=== PATIENT | female | born 1975 | race Caucasian/White ===

== ENCOUNTER → 2019-12-19 | Outpatient (CLI) | payer OTHER ==
[~2019-12-19] MED LIST: MULT-658 PO
[2019-12-19 18:10] LABS: BASOPHILS # (AUTO) 0.06 x10^3/uL (0-0.1); BASOPHILS % (AUTO) 1 % (0-1); EOSINOPHILS # (AUTO) 0.13 x10^3/uL (0-0.4); EOSINOPHILS % (AUTO) 1 % (1-7); LYMPHOCYTES # (AUTO) 2.76 x10^3/uL (1-3.4); LYMPHOCYTES % (AUTO) 29 % (22-44); MD MORPH REVIEW ONLY; MEAN CORPUSCULAR HEMOGLOBIN 21.3 pg (27.0-34.8); MEAN CORPUSCULAR HGB CONC 31.1 g/dL (32.4-35.8); MEAN CORPUSCULAR VOLUME 68.5 fL (80-100); MEAN PLATELET VOLUME 11.4 fL (7.4-10.4); MONOCYTES # (AUTO) 0.62 x10^3/uL (0.2-0.8); MONOCYTES % (AUTO) 7 % (2-9); NEUTROPHILS # (AUTO) 5.87 x10^3/uL (1.8-6.8); NEUTROPHILS % (AUTO) 62 % (42-75); PLATELET COUNT 398 x10^3/uL (130-400); RED BLOOD COUNT 4.87 x10^6/uL (3.82-5.3); RED CELL DISTRIBUTION WIDTH 19.6 % (9.6-15.2)
[2019-12-19 18:12] LABS: <PLATELET ESTIMATE> ADEQUATE; ANISOCYTOSIS 1+; GIANT PLATELETS 1+; LARGE PLATELETS 1+; MICROCYTOSIS 1+; OVALOCYTES 1+; POLYCHROMASIA 1+; TARGET CELLS 1+
== END | disposition home or self-care (01) ==
LOC: STAR 16:09
PROVIDERS: ATTEND Obstetrics & Gynecology Female Pelvic Medicine and Reconstructive Surgery
DX: Z01.818 Encounter for other preprocedural examination (principal); Z11.59 Encounter for screening for other viral diseases; D25.0 Submucous leiomyoma of uterus
CPT/HCPCS: 36415; 85025; 87635

== ENCOUNTER 2019-12-23 06:55 | Day surgery (SDC) | payer OTHER ==
[~2019-12-23] VITALS: Ht 157.5 cm; Wt 65.7 kg
[~2019-12-23 06:55] MED LIST changes: +BUPIVACAINE/PF 0.25% ONE; +GENTAMICIN 80 MG/2 ML ONE; +VANCOMYCIN 500 MG ONE
[2019-12-23] MEDS ORDERED: LACTATED RINGERS 1,000 ML IV ONE (07:27)
[2019-12-23] MEDS ORDERED: LIDOCAINE-MPF 1%, 2ML INFIL STA (07:27)
[2019-12-23] MEDS ORDERED: CHLORHEXIDINE 15 ML UDC MM STA (07:27)
[2019-12-23 07:28] VITALS: BP 116/69
[2019-12-23 07:40] LABS: HCG UR SG 1.005 (1.003-1.030)
[2019-12-23] MEDS ORDERED: FENTANYL PF 100 MCG/2ML ONE ×4 (08:21→12:00)
[2019-12-23] MEDS ORDERED: MIDAZOLAM 1 MG/ML, 2ML ONE (08:21)
[2019-12-23] MEDS ORDERED: HYDROmorphone 1 MG/ML, 1ML INJ IVPush PRN (09:30)
[2019-12-23] MEDS ORDERED: DIAZEPAM 5 MG/ML, 2ML IVPush PRN (09:30)
[2019-12-23] MEDS ORDERED: PROMETHAZINE 25 MG/ML, 1ML IVPush PRN (09:30)
[2019-12-23] MEDS ORDERED: LABETALOL 5MG/ML, 20ML IV PRN (09:30)
[2019-12-23] MEDS ORDERED: ONDANSETRON 2MG/ML, 2ML IVPush PRN (09:30)
[2019-12-23] MEDS ORDERED: ACETAMINOPHEN 325 MG TABLET PO PRN (09:30)
[2019-12-23] MEDS ORDERED: OXYcodone 5 MG/5 ML ORAL.SOL UDC PO PRN (09:30)
[2019-12-23] MEDS ORDERED: MEPERIDINE/PF 25MG/0.5ML IVPush PRN (09:30)
[2019-12-23] MEDS ORDERED: DIPHENHYDRAMINE 50 MG/ML, 1ML IVPush PRN (09:30)
[2019-12-23] MEDS ORDERED: hydrALAzine 20 MG/ML, 1ML IV PRN (09:30)
[2019-12-23] MEDS ORDERED: DEXAMETHASONE 4 MG/ML, 1ML ONE ×3 (09:35→09:36)
[2019-12-23] MEDS ORDERED: ROCURONIUM 10MG/ML,5ML ONE ×2 (09:36→09:52)
[2019-12-23] MEDS ORDERED: LIDOCAINE-MPF 2% ,5ML ONE (09:36)
[2019-12-23] MEDS ORDERED: ONDANSETRON 2MG/ML, 2ML ONE ×2 (09:36→11:41)
[2019-12-23] MEDS ORDERED: PROPOFOL 10 MG/ML, 20ML ONE (09:36)
[2019-12-23] MEDS ORDERED: CEFAZOLIN 1,000 MG ONE ×2 (09:36)
[2019-12-23] MEDS ORDERED: KETOROLAC 30 MG/1 ML ONE (09:49)
[2019-12-23] MEDS ORDERED: FLUORESCEIN SODIUM 500 MG/5 ML ONE (10:41)
[2019-12-23] MEDS ORDERED: NEOSTIGMINE 1 MG/ML, 10ML ONE ×2 (11:07)
[2019-12-23] MEDS ORDERED: GLYCOPYRROLATE 0.2MG/1ML, 5ML ONE (11:07)
[2019-12-23] MEDS ORDERED: ACETAMINOPHEN 650 MG/20.3 ML UDC ONE (11:39)
[2019-12-23] MEDS ORDERED: OXYcodone 5 MG/5 ML ORAL.SOL UDC ONE (11:39)
[2019-12-23] MEDS: FENTANYL PF 100 MCG/2ML IV PRN ×4 (11:45→12:18)
== END 2019-12-23 14:40 | disposition home or self-care (01) ==
LOC: OUT 06:55
PROVIDERS: ATTEND Obstetrics & Gynecology Female Pelvic Medicine and Reconstructive Surgery
DX: D25.0 Submucous leiomyoma of uterus (principal); N92.1 Excessive and frequent menstruation with irregular cycle; N94.6 Dysmenorrhea, unspecified; N80.0 Endometriosis of uterus; N81.89 Other female genital prolapse; N39.46 Mixed incontinence; N81.11 Cystocele, midline; N81.6 Rectocele; N81.5 Vaginal enterocele; N94.10 Unspecified dyspareunia; R10.2 Pelvic and perineal pain; Z79.899 Other long term (current) drug therapy; Z87.442 Personal history of urinary calculi; Z88.0 Allergy status to penicillin
CPT/HCPCS: 57265; 57282; 57288; 58554; 81025; 88307; C1771; J0690; J1100; J1580; J1885; J2250; J2405; J2704; J2710; J3010; J3370; J3490; J7120